=== PATIENT | male | born 1955 | race Caucasian/White ===

== ENCOUNTER → 2017-07-14 | Day surgery (SDC) | payer OTHER ==
[~2017-07-14] MED LIST: LACTATED RINGER'S 1000 ML INJ 1,000 ML ONE; PROPOFOL 100 MG/10 ML INJ IV ONE
--- NOTE | 2017-07-14 16:46 | GIPROC ---
[facility] [address] [place], [address] EGD PROCEDURE REPORT EXAM DATE: 07/14/2017 PATIENT NAME: Rober Wade MR #: [id number] BIRTHDATE: 1955 ATTENDING: Supa Forde MD ORDER #: [id number] ROPE MACHINE SETTER: Chen Feng RN STATUS: outpatient INDICATIONS: The patient is a 61 yr old male here for an EGD due to evaluation for beriatric surgery PROCEDURE PERFORMED: EGD w/ biopsy MEDICATIONS: None and Per Anesthesia. TOPICAL ANESTHETIC: none CONSENT: The patient understands the risks and benefits of the procedure and understands that these risks include, but are not limited to: sedation, allergic reaction, infection, perforation and/or bleeding. Alternative means of evaluation and treatment include, among others: physical exam, x-rays, and/or surgical intervention. The patient elects to proceed with this endoscopic procedure. medical equipment was checked for proper function. Hand hygiene and appropriate measures for infection prevention was taken. After the risks, benefits and alternatives of the procedure were thoroughly explained, Informed consent was verified, confirmed and timeout was successfully executed by the treatment team. The patient was anesthetized with topical anesthesia and the EC-3890Li ([id number]) and EC-2990i ([id number]) endoscope was introduced through the mouth and advanced to the second portion of the duodenum. Retroflexed views revealed no abnormalities The gastroscope was then slowly withdrawn and removed. Mild gastritis Bx done from antrum. The endoscopy was otherwise normal. ADVERSE EVENTS: There were no complications. IMPRESSIONS: 1. Mild gastritis Bx done from antrum 2. Normal endoscopy otherwise 3. Retroflexed views revealed no abnormalities RECOMMENDATIONS: 1. Await biopsy results. Biopsy results will not be ready for 7-10 days. If you don't hear from us in two weeks, call our office for biopsy results. 2. Avoid NSAIDS 3. Ranitidine 150mg BID PATIENT CONDITION: stable DISPOSITION: Home REPEAT EXAM: Return as needed for EGD Supa Forde MD eSigned: Supa Forde MD 07/14/2017 4:46 PM cc: Gretta Larsen M.D.
== END | disposition home or self-care (01) ==
LOC: ESDC 13:50
PROVIDERS: ATTEND Hospitalist
DX: K29.70 Gastritis, unspecified, without bleeding (principal)
CPT/HCPCS: 00740; 43239; 88305; J3010; J7120

== ENCOUNTER 2018-06-17 06:28 | Observation (INO) ==
[2018-06-17] MEDS ORDERED: ceFAZolin 2 GM IV; once IV.SIG SCH (07:00)
[2018-06-17] MEDS ORDERED: Metoprolol Tartrate 25 MG Tablet PO SCH (07:00)
[2018-06-17] MEDS ORDERED: Sodium Chlor 0.9% Inj 500 ML IV.SIG SCH (07:00)
[2018-06-17] MEDS ORDERED: Chlorhexidine Gluconate 2% 1 Pack (2 Cloths) TOPICAL SCH (07:00)
[2018-06-17] MEDS ORDERED: Thrombin Topical Soln 5,000 UNIT Vial TOPICAL ONE (07:04)
[2018-06-17] MEDS ORDERED: Bupivacaine/Epinephrine 0.5% Inj 50 ML Vial ONE (07:04)
[2018-06-17] MEDS ORDERED: Gelatin Size 100 Topical Foam ONE (07:05)
[2018-06-17 08:03] LABS: INR 1.1 Ratio; Prothrombin Time 11.2 sec (9.8-11.6)
[2018-06-17 08:09] LABS: Amorphous Sediment,Urine Rare /hpf; Bacteria,Urine Few /hpf; Bilirubin,Urine Negative (Negative); Color,Urine Yellow (Yellw/Straw); Glucose,Urine (UA) Negative (Negative); Leukocyte Esterase,Urine Negative (Negative); Mucus,Urine Many /lpf (Occasional); Nitrite,Urine Negative (Negative); Specific Gravity,Urine 1.035 (1.002-1.035)
[2018-06-17 08:10] LABS: Clarity,Urine Clear (Clear)
[2018-06-17] MEDS ORDERED: Bisacodyl 10 MG Supp RECTAL PRN (10:50)
--- NOTE | 2018-06-17 10:58 | P.OP ---
Date of procedure: 06/17/18 Procedure: L3-4 right hemilaminectomy, mesiofacetectomy, foraminotomy, microsurgical resection of the disk Anesthesia: DESI Surgeon: Everett Ybarra MD Interior Paneler: Osiris Farrar Pathology: none sent Operation and Findings: INDICATIONS FOR THE SURGICAL PROCEDURE Cecy Wade is a 62 year-old male who presented with intractable back pain and clinical evidence of right [id number] extremity radiculopathy. He was found to have significant lumbar spinal stenosis with significant mass effect on the neural structures which correlated with the clinical symptoms. The patient has failed maximum nonsurgical management including multiple modalities of conservative treatment as well as pain management interventions by an interventional pain specialist. A surgical decompression was indicated as a last resort. The ajmy-nd-lyim details of the procedure, indications, alternatives, risks and potential complications were fully discussed with the patient. The patient fully understood. All the questions were answered. No guarantees were given. The patient voiced requesting the procedure and provided informed consents. The patient was offered the alternative of delaying the procedure and continuing with nonsurgical management. DETAILS OF THE SURGICAL PROCEDURE After the induction of general anesthesia, endotracheal intubation was performed. A Capellan catheter, bilateral SANAZ hose and sequential compression devices were placed and kept throughout the procedure. The patient was positioned prone on a Fan table over a Ramses frame. All pressure points were carefully padded with eggcrate mattress. The eyes were tapped shut after ointment was applied by the anesthesiologist to prevent corneal abrasion. A Franny hugger was placed over the exposed lower body to maintain control of the core body temperature. The lower lumbar region was prepped and draped in the usual sterile fashion. A spinal needle was placed for localization and an x- ray performed with a C-arm. A skin incision was made in the midline over the spinous processes L3-L4 with a #10 blade. Small subcutaneous bleeders were controlled with a bipolar and the dissection was carried out through the lumbar fascia exposing the spinous processes. A subperiostial dissection was performed with a Mays elevator and a Bovie over the L3-L4 spinous process lamina and facets. A microdiscectomy self- retaining retractor was placed on the incision and an x-ray was obtained with an instrument placed underneath the lamina of L3. At this point in the procedure the operating microscope was draped in the usual sterile fashion and brought to the field. The rest of the surgical procedure was performed using microsurgical dissection technique with exception of the closure. Once the level was confirmed, a right decompressive laminectomy was performed at L3-L4. using the TPS drill with an 4mm drill bit. A medial facetectomy was performed and the superior free border of the ligamentum flavum was dissected with a ligament dissector and removed with a thin footplate 2 mm Kerrison. The medial facetectomy was done and the L4 nerve root was identified and followed towards its exit in the foramen. Epidural veins located laterally to the dural sac were coagulated with a bipolar and incised with microscissors. Gentle medial retraction of the dural sac allowed inspection of the disc space. The patient had severe facet arthropathy with hypertrhopy of the joint facets and ligamentum flavum resulting in mass effect over the dural sac and nerve roots. In addition, there was a broad-based disc protusion, contributing to the stenosis. The annulus fibrosus of the disc was coagulated with the bipolar and incised with an 11 blade. The disc was carefully dissected from the surrounding tissue and removed with pituitary forceps. Then, a microdiscectomy was carried out in the standard fashion using straight and up-biting pituitary forceps. A good decompression of the dural sac and nerve root was achieved. The exit of the nerve root was inspected for residual disc fragments and hemostasis was secured with the bipolar. The incision was irrigated with a large amount of saline solution. A Valsalva maneuver failed to show any cerebrospinal fluid leak or bleeding. The decompression was assessed again and found to be satisfactory. The incision was then closed in layers. The fascia was closed with 0 Vicryl sutures in an interrupted fashion. The superficial fascia was closed with 0 Vicryl sutures. The fascia was infiltrated with 0.5% Marcaine with epinephrine 1:100,000 dilution. The subcutaneous tissue was irrigated then closed with 0 Vicryl and 3 -0 Vicryl. The skin was closed with 4-0 running subcuticular Vicryl. A sterile dressing was applied. At the end of the procedure, the sponge, needle and instrument counts were all correct. Estimated blood loss was less than 60 cc. No blood transfusion was given. No intraoperative complications occurred. The patient received prophylactic antibiotics. The patient was then extubated and transferred to the recovery room in stable condition.
--- NOTE | 2018-06-17 11:05 | XR ---
EXAM DATE: 06/17/2018 10:55 AM EDT AGE/SEX: 62 years / Male INDICATIONS: L3-L4 hemilaminectomy. Level localization. CLINICAL DATA: This is the patient's initial encounter. Patient reports that signs and symptoms have been present for 1 day and indicates a pain score of Nonresponsive. MEDICAL/SURGICAL HISTORY: Spinal stenosis. Gastric bypass. COMPARISON: No prior exams available for comparison. FINDINGS: A single view of the spine was performed. Localization devices been placed posteriorly behind the se cond from the bottom lumbar vertebral body and at the third from the bottom disc space level. This ap pears to be at the L3-L4 level. CONCLUSION: Level localization at L3-L4. Electronically signed by: Odin Sam MD 06/17/2018 11:04 AM EDT
[2018-06-17] MEDS ORDERED: fentaNYL Citrate Inj 100 MCG/2 ML Ampul ONE (11:10)
[2018-06-17] MEDS ORDERED: *morphine SULFATE 10 MG/ML PERIprocedure ONLY ONE (11:25)
[2018-06-17] MEDS ORDERED: *Ondansetron Inj 4 MG/2 ML Vial PERIprocedural Use ONLY ONE (11:25)
[2018-06-17] MEDS ORDERED: Glycopyrrolate Inj 1 MG/5 ML Syringe IV.PUSH ONE (12:00)
[2018-06-17] MEDS ORDERED: Lidocaine PF 1% Inj 5 ML Syringe INFILTRATN ONE (12:00)
[2018-06-17] MEDS ORDERED: Neostigmine Inj 5 MG/5 ML Syringe IV.PUSH ONE (12:00)
[2018-06-17] MEDS: ALPRAZolam 0.25 MG Tablet PO SCH (21:10)
[2018-06-17] MEDS: Senna/Docusate Sodium 8.6/50 MG Tablet PO SCH (21:10)
[2018-06-18] MEDS: Senna/Docusate Sodium 8.6/50 MG Tablet PO SCH (08:29)
[2018-06-18] MEDS: ALPRAZolam 0.25 MG Tablet PO SCH (08:29)
[2018-06-18] MEDS ORDERED: VITAMIN E 200 UNIT PO SCH (09:00)
[2018-06-18] MEDS ORDERED: Non-Formulary Drug (Omega 3-Dha-Epa-Fish Oil [Fish Oil] 1 CAP) PO SCH (09:00)
[2018-06-18] MEDS ORDERED: Allopurinol 100 MG Tablet PO SCH (09:00)
--- NOTE | 2018-06-22 09:07 | P.DS ---
Date of admission: 06/17/18 10:50 Primary care physician: Gretta Padilla MD Brief History from admission: Mr Wade is a 62 year-old male who presented with intractable back pain and clinical evidence of right L4 lower extremity radiculopathy. He was found to have significant lumbar spinal stenosis with significant mass effect on the neural structures which correlated with the clinical symptoms. The patient has failed maximum nonsurgical management including multiple modalities of conservative treatment as well as pain management interventions by an interventional pain specialist. A surgical decompression was indicated as a last resort. DS: Summary Hospital Course: Mr. Wade underwent a L3-4 right hemilaminectomy, mesiofacetectomy, foraminotomy, microsurgical resection of the disk on 06/17/18. He was discharged in stable conditions. - Time Spent with Patient Total time spent providing and/or coordinating discharge services: - Quality: VTE Deep Vein Thrombosis/Pulmonary Embolism Present on Admission: No Results Procedures completed during hospitalization: L3-4 right hemilaminectomy, mesiofacetectomy, foraminotomy, microsurgical resection of the disk - Impressions ITS Impressions Lumbar Spine X-Ray 06/17/18 00:00 CONCLUSION: Level localization at L3-L4. Discharge Plan - Discharge Disposition Patient Disposition: Discharge Home - Discharge Condition Condition: Good - Discharge Order Discharge Orders: Discharge Order (Routine); Ordered 06/18/18 Ordered By: Niurka Bob - Physicians Team Primary Care Provider: Gretta Padilla Attending Provider: Everett Ybarra - Rxs /Orders / Referrals /Forms Prescriptions: Continue allopurinol 100 mg Tablet 100 mg PO DAILY alprazolam 0.25 mg Tablet 0.25 mg PO BID hydrocodone-acetaminophen 5-325 mg Tablet 1 tab PO BID omega 5-wpl-fkx-fish oil [Fish Oil] 1,000 mg (120 mg-180 mg) Capsule 1 cap PO DAILY vitamin E 200 unit Capsule 200 unit PO DAILY Referrals: Gretta Padilla MD [Primary Care Provider] - See Instructions ( Please call the physician's office to book the appointment to be seen within [].)
== END 2018-06-18 12:40 | disposition home or self-care (01) ==
LOC: HSDI 06:28 → HSDC 06:28 → N05 06:28
PROVIDERS: ADMIT Neurological Surgery; ATTEND Neurological Surgery